=== PATIENT | female | born 1975 | race African-American/Black ===

== ENCOUNTER 2017-06-07 10:20 | Day surgery (SDC) | payer BC ==
[~2017-06-07] VITALS: Ht 177.8 cm; Wt 104.3 kg
[~2017-06-07 10:20] MED LIST: GLUCOPHAGE XR,500 MG PO; NOHOMEMEDS; PROCARDIA XL30 MG PO; VANIQA 13.9% CR30 GM TP
[2017-06-07 10:48] VITALS: BP 135/74
[2017-06-07 11:09] LABS: HEMATOCRIT 30.7 % (36.0-46.0); MCH 25.6 PG (29.0-34.0); MCHC 34.2 G/DL (30.0-36.0); MCV 74.9 FL (83-99); MEAN PLAT.VOLUME 10.5 uM^3 (9.5-12.4); PLATELET COUNT 286 K/uL (156-360); RBC DIS.WIDTH-CV 15.9 % (11.8-14.6); RBC DIS.WIDTH-SD 43.3 % (39-53); WHITE BLOOD COUNT 5.8 K/uL (4.1-10.2)
[2017-06-07 11:20] LABS: EOSINOPHIL (%) 0.7 % (0-5); IMMATURE GRANULOCYTE (%) 0.2 % (0.0-0.7); INSTRUMENT ABS NEUTROPHIL CT 3.3 K/uL; LYMPHOCYTE COUNT 1.9 K/uL (1.0-2.8); MONOCYTE (%) 9.5 % (3-12); MONOCYTE COUNT 0.6 K/uL (0-0.8); NEUTROPHIL COUNT 3.3 K/uL (1.8-6.4)
[2017-06-07] MEDS ORDERED: NORCO 5/3251 TABLET PO (13:12)
[2017-06-07 15:37] VITALS: BP 131/69
[2017-06-07 15:59] VITALS: BP 130/70
== END 2017-06-07 16:07 | disposition home or self-care (01) ==
LOC: SDC 10:20 → 2SOUTH 10:22 → EDSTATUS 10:23 → SDC 10:24
PROVIDERS: Obstetrics & Gynecology
PROC: 0UDB8ZX Extraction of Endometrium, Via Natural or Artificial Opening Endoscopic, Diagnostic (ICD-10-PCS; principal; 2017-06-07)
PROC: 0UB98ZX Excision of Uterus, Via Natural or Artificial Opening Endoscopic, Diagnostic (ICD-10-PCS; principal; 2017-06-07)
DX: E28.2 Polycystic ovarian syndrome (principal); N92.1 Excessive and frequent menstruation with irregular cycle; N85.01 Benign endometrial hyperplasia; N94.6 Dysmenorrhea, unspecified; N91.5 Oligomenorrhea, unspecified; D50.9 Iron deficiency anemia, unspecified; K21.9 Gastro-esophageal reflux disease without esophagitis; K44.9 Diaphragmatic hernia without obstruction or gangrene; E88.81 Metabolic syndrome and other insulin resistance; Z79.84 Long term (current) use of oral hypoglycemic drugs; E66.9 Obesity, unspecified; Z68.34 Body mass index [BMI] 34.0-34.9, adult; Z98.84 Bariatric surgery status; D56.0 Alpha thalassemia
CPT/HCPCS: 84702; 85025; 88305; J1100; J1170; J1885; J2250; J2405; J2550; J2765; J3010

== ENCOUNTER 2017-10-01 09:35 | Observation (INO) | payer BC ==
[~2017-10-01] VITALS: Ht 175.3 cm; Wt 104.5 kg
[~2017-10-01 09:35] MED LIST changes: +NORCO 5/3251 TABLET PO
[2017-10-01 10:22] LABS: EOSINOPHIL (%) 0.7 % (0-5); HEMATOCRIT 33.7 % (36.0-46.0); IMMATURE GRANULOCYTE (%) 0.2 % (0.0-0.7); INSTRUMENT ABS NEUTROPHIL CT 3.4 K/uL; LYMPHOCYTE COUNT 1.6 K/uL (1.0-2.8); MCH 24.7 PG (29.0-34.0); MCHC 32.6 G/DL (30.0-36.0); MCV 75.6 FL (83-99); MEAN PLAT.VOLUME 10.4 uM^3 (9.5-12.4); MONOCYTE (%) 8.9 % (3-12); MONOCYTE COUNT 0.5 K/uL (0-0.8); NEUTROPHIL (%) 61.2 % (45-76); NEUTROPHIL COUNT 3.4 K/uL (1.8-6.4); PLATELET COUNT 283 K/uL (156-360); RBC DIS.WIDTH-CV 16.1 % (11.8-14.6); RBC DIS.WIDTH-SD 44.1 % (39-53); RED BLOOD COUNT 4.46 M/uL (3.80-5.20); WHITE BLOOD COUNT 5.6 K/uL (4.1-10.2)
[2017-10-01 10:28] LABS: INTER. NORMALIZED RATIO 1.2; PROTHROMBIN TIME 13.5 SEC (10.2-12.9)
[2017-10-01 10:30] LABS: D-DIMER ELISA < 150.00 ng/mLDDU (<230); PTT 27.7 SEC (25-37)
[2017-10-01 10:31] LABS: CHLORIDE 106 mEq/L (99-109); POTASSIUM 4.3 mEq/L (3.7-5.4); SODIUM 138 mEq/L (136-147)
[2017-10-01 10:33] LABS: GLUCOSE 85 mg/dL (70-99)
[2017-10-01 10:35] LABS: ANION GAP 7 MEQ/L (2-14)
[2017-10-01 10:37] LABS: GFR ESTIMATE (CALCULATED) > 59 mL/min/
[2017-10-01 10:38] LABS: UREA NITROGEN (BUN) 10 mg/dL (9-23)
[2017-10-01 10:42] LABS: TROP-I INTERPRETATION NEGATIVE; TROPONIN-I < 0.01 ng/mL (0.0-0.30)
[2017-10-01 14:47] VITALS: BP 131/72
[2017-10-01 17:04] LABS: TROP-I INTERPRETATION NEGATIVE; TROPONIN-I < 0.01 ng/mL (0.0-0.30)
[2017-10-01 17:58] VITALS: BP 112/72
[2017-10-01 18:57] VITALS: BP 111/59
[2017-10-01 23:11] VITALS: BP 110/55
[2017-10-01 23:17] LABS: TROP-I INTERPRETATION NEGATIVE; TROPONIN-I < 0.01 ng/mL (0.0-0.30)
[2017-10-02 03:05] VITALS: BP 115/56
[2017-10-02 08:15] VITALS: BP 120/72
[2017-10-02] MEDS ORDERED: MOTRIN600 MG PO (09:41)
== END 2017-10-02 10:33 | disposition home or self-care (01) ==
LOC: EME 09:35 → EDOF 12:00 → 5WEST 12:00 → ENRESERV 12:06 → 5WEST 14:21
PROVIDERS: Emergency Medicine; Nurse Practitioner Adult Health
DX: R07.89 Other chest pain (principal); M25.511 Pain in right shoulder; J45.909 Unspecified asthma, uncomplicated; E11.9 Type 2 diabetes mellitus without complications; Z98.84 Bariatric surgery status; Z82.49 Family history of ischemic heart disease and other diseases of the circulatory system; G43.909 Migraine, unspecified, not intractable, without status migrainosus; Z79.84 Long term (current) use of oral hypoglycemic drugs; V89.2XXS Person injured in unspecified motor-vehicle accident, traffic, sequela
CPT/HCPCS: 71010; 71100; 80048; 84484; 85025; 85379; 85610; 85730; 93005; 93306; 99281; 99285; G0378; J1650; J1885; J2270